=== PATIENT | female | born 1970 | race Two or more races ===

== ENCOUNTER 2016-09-08 11:47 | Emergency (ER) | payer MEDICARE ==
[2016-09-08 12:03] VITALS: BP 126/84
--- NOTE | 2016-09-08 12:07 | ER Document Report ---
ED Medical Screen (RME) - General Stated Complaint: MEDICATION REFILL Mode of Arrival: Ambulatory Information source: Patient Notes: Patient states she recently relocated to [facility] and has not been on her usual medications. Patient does have HIV supposed to be on a cocktail of medications. Patient has been off of her medication for the past 2 months. Patient also reports a history of kidney stones and wants to know how much her stone has grown. hx: HIV, PTSD, borderline personality disorder, bipolar I have greeted and performed a rapid initial assessment of this patient. A comprehensive ED assessment and evaluation of the patient, analysis of test results and completion of the medical decision making process will be conducted by additional ED providers. - Related Data Allergies/Adverse Reactions: Sulfa (Sulfonamide Antibiotics) Allergy (Verified 09/08/16 12:05) Physical Exam - Vital signs Vitals: Temp Pulse Resp BP Pulse Ox 98.1 F 68 18 126/84 H 100 09/08/16 12:03 09/08/16 12:03 09/08/16 12:03 09/08/16 12:03 09/08/16 12:03 - General General appearance: Appears well, Alert In distress: None Course - Vital Signs Vital signs: Temp Pulse Resp BP Pulse Ox 98.1 F 68 18 126/84 H 100 09/08/16 12:03 09/08/16 12:03 09/08/16 12:03 09/08/16 12:03 09/08/16 12:03
[2016-09-08 13:42] LABS: ABSOLUTE BASOPHILS # (AUTO) 0.1 10^3/uL (0.0-0.2); ABSOLUTE EOSINOPHILS # (AUTO) 0.6 10^3/uL (0.0-0.6); ABSOLUTE LYMPHOCYTES (AUTO) 3.1 10^3/uL (0.5-4.7); ABSOLUTE MONOCYTES (AUTO) 0.8 10^3/uL (0.1-1.4); ABSOLUTE NEUT (AUTO) 5.7 10^3/uL (1.7-8.2); BASOPHILS % (AUTO) 0.5 % (0-2); EOSINOPHILS % (AUTO) 5.5 % (0-6); HEMATOCRIT 42.7 % (36.0-47.0); HEMOGLOBIN 13.8 g/dL (12.0-15.5); HGB HCT DIFFERENCE -1.3; LYMPHOCYTES % (AUTO) 30.2 % (13-45); MEAN CORPUSCULAR HEMOGLOBIN 30.4 pg (27.0-33.4); MEAN CORPUSCULAR HGB CONC 32.2 g/dL (32.0-36.0); MEAN CORPUSCULAR VOLUME 95 fl (80-97); MONOCYTES % (AUTO) 7.9 % (3-13); RED BLOOD COUNT 4.52 10^6/uL (3.72-5.28); RED CELL DISTRIBUTION WIDTH 13.5 % (11.5-14.0); SEGMENTED NEUTROPHILS % (AUTO) 55.9 % (42-78); WHITE BLOOD COUNT 10.2 10^3/uL (4.0-10.5)
[2016-09-08 13:46] LABS: APPEARANCE,URINE CLEAR; BILIRUBIN,URINE NEGATIVE (NEGATIVE); GLUCOSE, URINE NEGATIVE (NEGATIVE); KETONES,URINE NEGATIVE (NEGATIVE); LEUKOCYTE ESTERASE,URINE NEGATIVE (NEGATIVE); NITRITE,URINE NEGATIVE (NEGATIVE); PROTEIN,URINE NEGATIVE (NEGATIVE); URINE SPECIFIC GRAVITY 1.018; UROBILINOGEN,URINE NEGATIVE mg/dL (<2.0)
[2016-09-08 14:00] LABS: ALANINE AMINOTRANSFERASE 15 U/L (9-52); ALBUMIN 4.3 g/dL (3.5-5.0); ALKALINE PHOSPHATASE 45 U/L (38-126); ANION GAP 11 (5-19); ASPARTATE AMINO TRANSFERASE 14 U/L (14-36); BILIRUBIN,TOTAL 0.5 mg/dL (0.2-1.3); BLOOD UREA NITROGEN 13 mg/dL (7-20); CALCIUM 9.5 mg/dL (8.4-10.2); CARBON DIOXIDE 27 mmol/L (22-30); CHLORIDE 104 mmol/L (98-107); CREATININE RESULT 0.53 mg/dL (0.52-1.25); GLUCOSE 84 mg/dL (75-110); POTASSIUM 4.3 mmol/L (3.6-5.0); SODIUM 141.9 mmol/L (137-145); TOTAL PROTEIN 7.2 g/dL (6.3-8.2)
--- NOTE | 2016-09-08 14:59 | ER Document Report ---
ED General - General Chief Complaint: Medication Refill Stated Complaint: MEDICATION REFILL Time seen by provider: 14:56 Mode of Arrival: Ambulatory Notes: This is a 45-year-old female with a history of HIV asthma bipolar and anxiety that presents today with a medication refill. She states that she is from [place] and has no primary care physician here in [place]. She denies all symptoms. She denies nausea vomiting fever or chills. Her primary care physician is Dr. Sullivan, who is in [place]. She states that she had an appointment with [facility] today at 0900 but decided not to go. Patient has medications in bag. TRAVEL OUTSIDE OF THE [place] IN LAST 30 DAYS: No - Related Data Allergies/Adverse Reactions: Sulfa (Sulfonamide Antibiotics) Allergy (Verified 09/08/16 12:05) Past Medical History - General Information source: Patient - Social History Smoking Status: Current Every Day Smoker Chew tobacco use (# tins/day): No Frequency of alcohol use: Social Drug Abuse: None Family History: Reviewed & Not Pertinent Patient has suicidal ideation: No Patient has homicidal ideation: No Pulmonary Medical History: Reports: Hx Pneumonia Renal/ Medical History: Denies: Hx Peritoneal Dialysis Psychiatric Medical History: Reports: Hx Bipolar Disorder - borderline, Hx Depression - PTSD, manic dep Past Surgical History: Reports: Hx Kidney (Renal Surgery) - kidney stones Review of Systems - Review of Systems Constitutional: denies: Chills, Fever EENT: No symptoms reported Cardiovascular: No symptoms reported. denies: Chest pain Respiratory: No symptoms reported. denies: Cough, Hurts to breathe Gastrointestinal: No symptoms reported. denies: Abdominal pain Genitourinary: No symptoms reported. denies: Burning Musculoskeletal: No symptoms reported Skin: No symptoms reported Hematologic/Lymphatic: No symptoms reported Neurological/Psychological: No symptoms reported Physical Exam - Vital signs Vitals: Temp Pulse Resp BP Pulse Ox 98.1 F 68 18 126/84 H 100 09/08/16 12:03 09/08/16 12:03 09/08/16 12:03 09/08/16 12:03 09/08/16 12:03 - General General appearance: Appears well, Alert In distress: None - HEENT Head: Normocephalic, Atraumatic Eyes: Normal. No: Scleral icterus - Respiratory Respiratory status: No respiratory distress. No: Tachypnea Breath sounds: Normal. No: Rales, Rhonchi, Stridor, Wheezing - Cardiovascular Rhythm: Regular Heart sounds: Normal auscultation - Abdominal Inspection: Normal Distension: No distension Bowel sounds: Normal Tenderness: Nontender - Back Back: Normal - Extremities General upper extremity: Normal inspection General lower extremity: Normal inspection - Neurological Cognition: Normal. No: Confused - Psychological Associated symptoms: Normal affect, Normal mood - Skin Skin Temperature: Warm Skin Moisture: Dry Skin Color: Normal Course - Re-evaluation Re-evalutation: 09/08/16 16:56 Patient stated that she had an appointment with [facility] but did not keep it today. She was advised to follow-up as soon as possible and reschedule the appointment. Patient denies all symptoms. - Vital Signs Vital signs: Temp Pulse Resp BP Pulse Ox 98.1 F 68 18 126/84 H 100 09/08/16 12:03 09/08/16 12:03 09/08/16 12:03 09/08/16 12:03 09/08/16 12:03 - Laboratory Result Diagrams: 09/08/16 12:50 09/08/16 12:50 Laboratory results interpreted by me: 09/08/16 12:50 Urine Ascorbic Acid 40 H Discharge - Discharge Clinical Impression: Encounter for medication refill Condition: Good Disposition: HOME, SELF-CARE Additional Instructions: Return to the emergency department if any symptoms return. Follow-up with primary care physician as soon as possible. Prescriptions: Albuterol Sulfate [Proair HFA Inhalation Aerosol 8.5 gm MDI] 2 puff IH Q4H PRN # 1 mdi PRN Reason: Referrals: [facility] [Provider Group] - Follow up as needed
== END 2016-09-08 15:08 | disposition home or self-care (01) ==
LOC: ER 11:47
DX: Z76.0 Encounter for issue of repeat prescription (principal); F17.200 Nicotine dependence, unspecified, uncomplicated; Z88.2 Allergy status to sulfonamides
CPT/HCPCS: 36415; 80053; 81001; 81025; 85025; 99282

== ENCOUNTER 2017-12-20 11:03 | Emergency (ER) | payer MEDICARE, MEDICAID ==
--- NOTE | 2017-12-20 12:35 | ER Document Report ---
HPI - HPI Patient complains to provider of: Upper and lower back pain Onset: Other - Several days Onset/Duration: Gradual Quality of pain: Throbbing Pain Level: 4 Context: 47-year-old female complaining of upper and lower back pain after doing several days of extensive yard work, raking, and moving furniture. She did feel a pop in her lower back. There is no radiculopathy. No saddle anesthesia. No fever or chills. No UTI symptoms. Associated Symptoms: None Exacerbated by: Movement Relieved by: Denies Similar symptoms previously: No Recently seen / treated by doctor: No - ROS ROS below otherwise negative: Yes Systems Reviewed and Negative: Yes All other systems reviewed and negative - CONSTITUTIONAL Constitutional: DENIES: Fever, Chills - EENT EENT: DENIES: Sore Throat, Ear Pain, Eye problems - NEURO Neurology: DENIES: Headache, Weakness, Vision blurred, Dizzinesss / Vertigo - CARDIOVASCULAR Cardiovascular: DENIES: Chest pain - RESPIRATORY Respiratory: DENIES: Trouble Breathing, Coughing - GASTROINTESTINAL Gastrointestinal: DENIES: Abdominal Pain, Black / Bloody Stools - URINARY Urinary: DENIES: Dysuria, Urgency, Frequency - MUSCULOSKELETAL Musculoskeletal: DENIES: Extremity pain Past Medical History - General Information source: Patient - Social History Smoking Status: Current Every Day Smoker Chew tobacco use (# tins/day): No Frequency of alcohol use: Occasional Drug Abuse: None Lives with: Family Family History: Reviewed & Not Pertinent Patient has suicidal ideation: No Patient has homicidal ideation: No Pulmonary Medical History: Reports: Hx Pneumonia Renal/ Medical History: Denies: Hx Peritoneal Dialysis Psychiatric Medical History: Reports: Hx Bipolar Disorder - borderline, Hx Depression - PTSD, manic dep Past Surgical History: Reports: Hx Kidney (Renal Surgery) - kidney stones Vertical Provider Document - CONSTITUTIONAL Agree With Documented VS: Yes Exam Limitations: No Limitations General Appearance: Mild Distress - INFECTION CONTROL TRAVEL OUTSIDE OF THE [place] IN LAST 30 DAYS: No - HEENT HEENT: Normocephalic - NECK Neck: Supple Notes: non tender c spine, bilateral trapezius muscles tender - RESPIRATORY Respiratory: Breath Sounds Normal, No Respiratory Distress - CARDIOVASCULAR Cardiovascular: Regular Rate, Regular Rhythm - BACK Back: Normal Inspection Notes: tender upper l spine midline - MUSCULOSKELETAL/EXTREMETIES Musculoskeletal/Extremeties: SUNI PABLO - NEURO Motor/Sensory: No Motor Deficit, No Sensory Deficit - DERM Integumentary: Warm, Dry, No Rash Course - Re-evaluation Re-evalutation: 12/20/17 13:52 Patient states that Tylenol will not help the pain and Motrin causes inflammation in her esophagus but she is willing to take a Toradol shot IM. 12/20/17 14:00 X-ray shows minimal levoscoliosis no acute findings. - Vital Signs Vital signs: Temp Pulse Resp BP Pulse Ox 98.6 F 67 16 143/83 H 100 12/20/17 11:36 12/20/17 11:36 12/20/17 11:36 12/20/17 11:36 12/20/17 11:36 Discharge - Discharge Clinical Impression: low and upper back muscle strain Condition: Good Disposition: HOME, SELF-CARE Instructions: Low Back Pain ([facility]), Muscle Relaxers ([facility]), Muscle Strain ([facility]), Upper Back Strain ([facility]), Warm Packs ([facility]) Additional Instructions: warm compress to your doctor for follow up to er if worsening symptoms see chiropractor for follow up Prescriptions: Cyclobenzaprine HCl [Flexeril 10 Mg Tablet] 10 mg PO TIDP PRN #20 tablet PRN Reason: Heating Pad 1 appful TOP DAILY #1 Forms: Return to Work
[2017-12-20] MEDS ORDERED: ACETAMINOPHEN 325 MG TABLET PO ONE (12:47)
[2017-12-20] MEDS ORDERED: IBUPROFEN 800 MG TABLET PO ONE (12:47)
--- NOTE | 2017-12-20 13:17 | RADIOLOGY REPORT (SQ) ---
EXAM DESCRIPTION: L SPINE WHOLE COMPLETED DATE/TIME: 12/20/2017 1:06 pm REASON FOR STUDY: back injury pain COMPARISON: None. NUMBER OF VIEWS: Five views including obliques. TECHNIQUE: AP, lateral, oblique, and sacral radiographic images acquired of the lumbar spine. LIMITATIONS: None. FINDINGS: MINERALIZATION: Normal. SEGMENTATION: Normal. No transitional anatomy. ALIGNMENT: Minimal levoscoliosis. VERTEBRAE: Maintained height. No fracture or worrisome bone lesion. DISCS: Preserved height. No significant osteophytes or end plate irregularity. POSTERIOR ELEMENTS: Pedicles and facets are intact. No pars defect or posterior arch defects. HARDWARE: None in the spine. PARASPINAL SOFT TISSUES: Normal. PELVIS: Intact as visualized. No fractures or worrisome bone lesions. SI joints intact. OTHER: No other significant finding. IMPRESSION: Minimal levoscoliosis. No acute findings are present. TECHNICAL DOCUMENTATION: JOB ID: [id number] [employer]- All Rights Reserved Reading location - IP/workstation name: [email or web address]
[2017-12-20] MEDS ORDERED: KETOROLAC TROMETHAMINE 60 MG/2 ML SDV IM ONE (13:52)
[2017-12-20] MEDS ORDERED: PHENAZOPYRIDINE HCL 200 MG TABLET PO ONE (13:55)
[2017-12-20 14:30] VITALS: BP 138/83
== END 2017-12-20 14:29 | disposition home or self-care (01) ==
LOC: ER 11:03
DX: S39.012A Strain of muscle, fascia and tendon of lower back, initial encounter (principal); S29.012A Strain of muscle and tendon of back wall of thorax, initial encounter; F17.200 Nicotine dependence, unspecified, uncomplicated; X58.XXXA Exposure to other specified factors, initial encounter; Y93.H2 Activity, gardening and landscaping; Y92.007 Garden or yard of unspecified non-institutional (private) residence as the place of occurrence of the external cause; Z87.442 Personal history of urinary calculi
CPT/HCPCS: 99283; 96372; 72110; J1885

== ENCOUNTER 2018-08-22 11:40 | Emergency (ER) | payer MEDICARE, MEDICAID ==
[2018-08-22] MEDS ORDERED: OXYCODONE HCL IR 5 MG TABLET PO ONE (11:46)
[2018-08-22 11:50] VITALS: BP 178/116
--- NOTE | 2018-08-22 12:28 | RADIOLOGY REPORT (SQ) ---
EXAM DESCRIPTION: WRIST LEFT 3 VIEWS COMPLETED DATE/TIME: 08/22/2018 12:14 pm REASON FOR STUDY: left wrist COMPARISON: None. NUMBER OF VIEWS: Three views. TECHNIQUE: AP, lateral, and oblique radiographic images acquired of the left wrist. LIMITATIONS: None. FINDINGS: MINERALIZATION: Normal. BONES: No acute fracture or dislocation. No worrisome bone lesions. Normal alignment. SOFT TISSUES: There is soft tissue swelling over the ulnar styloid. OTHER: No other significant finding. IMPRESSION: Mild soft tissue swelling. No fracture or dislocation. TECHNICAL DOCUMENTATION: JOB ID: [id number] [employer]- All Rights Reserved Reading location - IP/workstation name: [email or web address]
--- NOTE | 2018-08-22 12:37 | ER Document Report ---
ED Medical Screen (RME) - General Chief Complaint: Fall Stated Complaint: FALL Time Seen by Provider: 08/22/18 12:25 Notes: Patient is well-nourished well-developed 39-year-old female comes emergency room after having a trip and fall onto concrete. Patient has multiple abrasions with a hematoma to the head she had no loss of consciousness. She states that she had piles of closed on her floor to wash and she let her dog out and when she lo oked up there was a strange dog in the yard that there are ground on each other so patient got anxious should not ran out of the house to save her dog and she got to the step just before going outside and she tripped and fell out onto the concrete. Her whole left side has worn a huge abrasion she hit her head on something but denies any loss of consciousness. She has a deformity of the left wrist and her ring finger also appears to have a laceration on it. She has abrasions to her left hip from mid abdomen down that hurts as well as multiple abrasions on the knee and leg and other questionable area where there might be a laceration. Patient denies any other medical problems. TRAVEL OUTSIDE OF THE [place] IN LAST 30 DAYS: No - HPI Onset: Just prior to arrival Onset/Duration: Sudden Quality of pain: Sharp, Stabbing, Throbbing Pain Level: 4 Similar symptoms previously: No Recently seen / treated by doctor: No - Related Data Smoking: Cigarettes - Unknown Allergies/Adverse Reactions: ibuprofen [From Motrin] Allergy (Verified 08/22/18 11:41) Sulfa (Sulfonamide Antibiotics) Allergy (Verified 08/22/18 11:41) acetaminophen [From Tylenol] Adverse Reaction (Verified 08/22/18 11:41) Past Medical History - General Information source: Patient - Social History Lives with: Family Family history: Reviewed & Not Pertinent Pulmonary Medical History: Reports: Hx Pneumonia Renal/ Medical History: Denies: Hx Peritoneal Dialysis Psychiatric Medical History: Reports: Hx Bipolar Disorder - borderline, Hx Depression - PTSD, manic dep Past Surgical History: Reports: Hx Kidney (Renal Surgery) - kidney stones Review of Systems - Review of Systems Constitutional: No symptoms reported EENT: No symptoms reported Cardiovascular: No symptoms reported Respiratory: No symptoms reported Gastrointestinal: No symptoms reported Genitourinary: No symptoms reported Female Genitourinary: No symptoms reported Musculoskeletal: Joint pain, Joint swelling, Leg swelling Skin: No symptoms reported Hematologic/Lymphatic: No symptoms reported Neurological/Psychological: No symptoms reported Physical Exam - Vital signs Vitals: Temp Pulse Resp BP Pulse Ox 98.7 F 83 20 178/116 H 98 08/22/18 11:49 08/22/18 11:49 08/22/18 11:49 08/22/18 11:49 08/22/18 11:49 Interpretation: Hypertensive - Notes Notes: Physical exam Patient is well-nourished well-developed 47-year-old female who is in no apparent distress at present time of examination however she appears to be in moderate amount of discomfort and pain secondary to the left side of her body B in 1 large abrasion with a deformity of the left wrist. Lungs: Auscultation of the lungs show bilateral breath sounds clear to auscultation. Cardiac: Shows regular rate and rhythm without any murmurs. Musculoskeletal: Examination of area of concern is her left shoulder which shows a 6 x 4 abrasion the bleeding is controlled. She has a deformity of the left wrist about the distal third of the radius and ulna area. Very tender to palpation patient will not let us touch it. She will not make a fist or try to extend her fingers on physical examination. Left ring finger appears to have a laceration on the medial aspect of it but the blood is clotted currently. She will not been that ring finger and will not allowed to be touch. Lower extremities shows that she has multiple abrasions on the leg possible laceration on the sorenson area of the lower leg. Skin: As mentioned in all the above patient has 1 huge abrasion from the left shoulder and arm all the way down to the left hip going posteriorly and anteriorly to the abdomen that appears to be rock E or dirty. Course - Re-evaluation Re-evalutation: 08/22/18 12:37 Patient is going to take some extensive cleaning up to do in order to see what exactly needs to be done. There is a deformity at the wrist the x-ray has not been read yet. She needs to be moved up. So at this time I do not believe there are any further orders that need to be handled so I am passing her off after doing my initial evaluation of the patient finding her stable at this time to be moved up to a room where it is a additional provider will take over her care. - Vital Signs Vital signs: Temp Pulse Resp BP Pulse Ox 98.7 F 83 20 178/116 H 98 08/22/18 11:49 08/22/18 11:49 08/22/18 11:49 08/22/18 11:49 08/22/18 11:49 Doctor's Discharge - Discharge Clinical Impression: Fall (on) (from) other stairs and steps, initial encounter, Abrasions of mul tiple sites
[2018-08-22] MEDS ORDERED: LIDOCAINE 5% (700 MG) TRANSDERMAL ADH..PATCH TP ONE (13:35)
--- NOTE | 2018-08-22 14:00 | ER Document Report ---
ED General - General Chief Complaint: Fall Stated Complaint: FALL Time Seen by Provider: 08/22/18 12:25 TRAVEL OUTSIDE OF THE [place] IN LAST 30 DAYS: No - HPI Patient complains to provider of: Fall Notes: Patient coming in for evaluation of her fall. Patient was seen by 1 of our triage providers his note is below atient is well-nourished well-developed 39-year-old female comes emergency room after having a trip and fall onto concrete. Patient has multiple abrasions with a hematoma to the head she had no loss of consciousness. She states that she had piles of closed on her floor to wash and she let her dog out and when she looked up there was a strange dog in the yard that there are ground on each other so patient got anxious should not ran out of the house to save her dog and she got to the step just before going outside and she tripped and fell out onto the concrete. Her whole left side has worn a huge abrasion she hit her head on something but denies any loss of consciousness. She has a deformity of the left wrist and her ring finger also appears to have a laceration on it. She has abrasions to her left hip from mid abdomen down that hurts as well as multiple abrasions on the knee and leg and other questionable area where there might be a laceration. Patient denies any other medical problems. Patient upon my evaluation and attempts to be complaining of pain in the left wrist. Patient has multiple obvious abrasions patient otherwise denies any fever chills nausea by diarrhea states tetanus is up-to-date. - Related Data Allergies/Adverse Reactions: ibuprofen [From Motrin] Allergy (Verified 08/22/18 11:41) Sulfa (Sulfonamide Antibiotics) Allergy (Verified 08/22/18 11:41) acetaminophen [From Tylenol] Adverse Reaction (Verified 08/22/18 11:41) Past Medical History - General Information source: Patient - Social History Smoking Status: Former Smoker Frequency of alcohol use: Occasional Drug Abuse: None Lives with: Family Family History: Reviewed & Not Pertinent Patient has suicidal ideation: No Patient has homicidal ideation: No Pulmonary Medical History: Reports: Hx Pneumonia Renal/ Medical History: Denies: Hx Peritoneal Dialysis Psychiatric Medical History: Reports: Hx Bipolar Disorder - borderline, Hx Depression - PTSD, manic dep Past Surgical History: Reports: Hx Kidney (Renal Surgery) - kidney stones Review of Systems - Review of Systems Constitutional: No symptoms reported EENT: No symptoms reported Cardiovascular: No symptoms reported Respiratory: No symptoms reported Gastrointestinal: No symptoms reported Genitourinary: No symptoms reported Female Genitourinary: No symptoms reported Musculoskeletal: Other - Multiple abrasions with pain of the left elbow and shoulder Skin: No symptoms reported Hematologic/Lymphatic: No symptoms reported Neurological/Psychological: No symptoms reported -: Yes All other systems reviewed and negative Physical Exam - Vital signs Vitals: Temp Pulse Resp BP Pulse Ox 98.7 F 83 20 178/116 H 98 08/22/18 11:49 08/22/18 11:49 08/22/18 11:49 08/22/18 11:49 08/22/18 11:49 Interpretation: Normal - General General appearance: Appears well, Alert - HEENT Head: Normocephalic, Atraumatic Eyes: Normal Pupils: PERRL - Respiratory Respiratory status: No respiratory distress Chest status: Nontender Breath sounds: Normal Chest palpation: Normal - Cardiovascular Rhythm: Regular Heart sounds: Normal auscultation Murmur: No - Abdominal Inspection: Normal Distension: No distension Bowel sounds: Normal Tenderness: Nontender Organomegaly: No organomegaly - Back Back: Normal, Nontender - Extremities General upper extremity: Tender - Tenderness palpation of wrist elbow and shoulder, Normal color, Normal ROM, Normal temperature. No: Normal inspection - Multiple abrasions with swelling to the left wrist General lower extremity: Normal inspection, Nontender, Normal color, Normal ROM, Normal temperature, Normal weight bearing. No: Jeffrey's sign - Neurological Neuro grossly intact: Yes Cognition: Normal Orientation: AAOx4 Valentine Coma Scale Eye Opening: Spontaneous Valentine Coma Scale Verbal: Oriented Cira Coma Scale Motor: Obeys Commands Cira Coma Scale Total: 15 Speech: Normal Motor strength normal: LUE, RUE, LLE, RLE Sensory: Normal - Psychological Associated symptoms: Normal affect, Normal mood - Skin Skin Temperature: Warm Skin Moisture: Dry Skin Color: Normal Notes: Multiple abrasions on the extremities Course - Re-evaluation Re-evalutation: 08/22/18 16:13 Upon my evaluation patient already had the left wrist x-ray performed showing no fracture. Patient requesting pain medication explained to patient that we would give her something unknowing that the patient receive oxycodone in the triage area. Patient was given additional Narcan. Patient continued to have pain to palpation of the wrist elbow and shoulder therefore x-rays of the elbow and shoulder were added I was later notified by the nursing staff the patient eloped the ER prior to receiving the official reads of the elbow and shoulder x-rays - Vital Signs Vital signs: Temp Pulse Resp BP Pulse Ox 98.7 F 83 20 178/116 H 98 08/22/18 11:49 08/22/18 11:49 08/22/18 11:49 08/22/18 11:49 08/22/18 11:49 Discharge - Discharge Clinical Impression: Fall (on) (from) other stairs and steps, initial encounter, Abrasions of multiple sites Disposition: AGAINST MEDICAL ADVICE Instructions: Abrasions ([facility]), Contusion ([facility]) Additional Instructions: Please follow-up with your primary care physician. I would recommend keeping triple antibiotic ointment on all of your abrasions and please make sure they stay clean and dry return to the ER for any other concerns.
--- NOTE | 2018-08-22 14:48 | RADIOLOGY REPORT (SQ) ---
EXAM DESCRIPTION: ELBOW LEFT AP/LATERAL COMPLETED DATE/TIME: 08/22/2018 2:31 pm REASON FOR STUDY: fall COMPARISON: None. NUMBER OF VIEWS: Four views. TECHNIQUE: AP, lateral, and both oblique radiographic images acquired of the left elbow. LIMITATIONS: None. FINDINGS: MINERALIZATION: Normal. BONES: No acute fracture or dislocation. Small osteophytes off of the distal anterior humerus. JOINT: No effusion. SOFT TISSUES: No soft tissue swelling. No foreign body. OTHER: No other significant finding. IMPRESSION: 1. NEGATIVE STUDY OF THE LEFT ELBOW. TECHNICAL DOCUMENTATION: JOB ID: [id number] [employer]- All Rights Reserved Reading location - IP/workstation name: [email or web address]
--- NOTE | 2018-08-22 14:49 | RADIOLOGY REPORT (SQ) ---
EXAM DESCRIPTION: SHOULDER LEFT 2 OR MORE VIEWS COMPLETED DATE/TIME: 08/22/2018 2:31 pm REASON FOR STUDY: fall COMPARISON: None. NUMBER OF VIEWS: Three views. TECHNIQUE: Internal rotation, external rotation, and Y view images acquired of the left shoulder. LIMITATIONS: None. FINDINGS: MINERALIZATION: Normal. BONES: No acute fracture or dislocation. No worrisome bone lesions. JOINTS: No dislocation. VISUALIZED LUNGS AND RIBS: No pneumothorax. No rib fracture. SOFT TISSUES: No radiopaque foreign body. OTHER: No other significant finding. IMPRESSION: 1. NEGATIVE STUDY OF THE LEFT SHOULDER. TECHNICAL DOCUMENTATION: JOB ID: [id number] [employer]- All Rights Reserved Reading location - IP/workstation name: [email or web address]
== END 2018-08-22 14:38 | disposition left against medical advice (07) ==
LOC: ER 11:40
DX: S50.312A Abrasion of left elbow, initial encounter (principal); S40.212A Abrasion of left shoulder, initial encounter; M25.432 Effusion, left wrist; M25.532 Pain in left wrist; W10.8XXA Fall (on) (from) other stairs and steps, initial encounter; Y93.K9 Activity, other involving animal care; Y92.009 Unspecified place in unspecified non-institutional (private) residence as the place of occurrence of the external cause; Z53.20 Procedure and treatment not carried out because of patient's decision for unspecified reasons; Z88.6 Allergy status to analgesic agent; Z88.2 Allergy status to sulfonamides; Z87.891 Personal history of nicotine dependence; M25.522 Pain in left elbow
CPT/HCPCS: 99281; 73070; 73030; 73110; A9270

== ENCOUNTER 2018-08-23 10:02 | Emergency (ER) | payer MEDICARE, MEDICAID ==
[2018-08-23 10:14] VITALS: BP 140/97
--- NOTE | 2018-08-23 10:26 | ER Document Report ---
ED Medical Screen (RME) - General Chief Complaint: Abrasion(s) Stated Complaint: FALL/LEFT SIDE PAIN Time Seen by Provider: 08/23/18 10:25 Notes: Patient fell yesterday sustaining significant abrasions to the left upper extremity and the left lower leg. She was seen here last night and had x-rays done of the left shoulder, elbow, and wrist were all normal.. She had to leave because she has an autistic child at home. She returns today because of the continuing pain. Today, patient is complaining of pain in her left knee. HIV positive. History of anxiety, bipolar disorder, PTSD. TRAVEL OUTSIDE OF THE [place] IN LAST 30 DAYS: No - Related Data Allergies/Adverse Reactions: ibuprofen [From Motrin] Allergy (Verified 08/22/18 11:41) Sulfa (Sulfonamide Antibiotics) Allergy (Verified 08/22/18 11:41) acetaminophen [From Tylenol] Adverse Reaction (Verified 08/22/18 11:41) Past Medical History - Social History Chew tobacco use (# tins/day): No Frequency of alcohol use: None Drug Abuse: None Family history: Reviewed & Not Pertinent Pulmonary Medical History: Reports: Hx Pneumonia Psychiatric Medical History: Reports: Hx Bipolar Disorder - borderline, Hx Depression - PTSD, manic dep Infectious Medical History: Reports: Hx HIV Past Surgical History: Reports: Hx Kidney (Renal Surgery) - kidney stones Review of Systems - Review of Systems Notes: CONSTITUTIONAL : Denies fever. CARDIOVASCULAR: Denies chest pain. RESPIRATORY: Denies cough, chest congestion, or shortness of breath. GASTROINTESTINAL: Denies abdominal pain or nausea, vomiting, or diarrhea. GENITOURINARY: Denies difficulty or painful urinating, urinary frequency, blood in urine. Physical Exam - Vital signs Vitals: Temp Pulse Resp BP Pulse Ox 98.8 F 85 18 140/97 H 97 08/23/18 10:12 08/23/18 10:12 08/23/18 10:12 08/23/18 10:12 08/23/18 10:12 Interpretation: Normal Notes: PHYSICAL EXAMINATION: GENERAL: Well-appearing, no acute distress. Holding left arm still because of the abrasions and bruises she sustained to the forearm. HEAD: Atraumatic, normocephalic. NECK: Normal range of motion, supple. LUNGS: Breath sounds clear and equal bilaterally. HEART: Regular rate and rhythm without murmurs heard. ABDOMEN: Soft, nontender. No guarding or rebound or masses felt. Extremities: Patient has numerous abrasions of her left arm, shoulder, elbow, and then the left leg from the knee down to the ankle. These abrasions are deep and oozing clear liquid. They are very painful to touch. No apparent bony injury. Neurologic exam: Intact sensory motor and reflexes. Oriented x3. Course - Re-evaluation Re-evalutation: 08/23/18 11:27 Patient's chart says she is allergic to Tylenol in Percocet, but I asked her specifically about the Tylenol she says she is not allergic to it. 08/23/18 20:12 Patient's previous visit record was reviewed. X-rays were obtained of her left knee which were normal. - Vital Signs Vital signs: Temp Pulse Resp BP Pulse Ox 98.8 F 85 18 140/97 H 97 08/23/18 10:12 08/23/18 10:12 08/23/18 10:12 08/23/18 10:12 08/23/18 10:12 Doctor's Discharge - Discharge Clinical Impression: Fall, Multiple abrasions Condition: Stable Disposition: HOME, SELF-CARE Additional Instructions: MUSCLE STRAIN: You have strained a muscle -- torn the fibers within the muscle. This often occurs with strenuous exertion, or during an injury that suddenly stretches the muscle. The seriousness of a strain varies. Some strains heal within days, others cause problems for months. X-rays cannot show a muscle strain. X-rays are taken only if symptoms suggest that a fracture could be present. The usual treatment of a muscle strain is rest and ice packs. Sometimes, a sling, splint, or crutches may be necessary to rest the muscle. The muscle can be used again once pain subsides. Severe strains require a special exercise and stretching program to prevent permanent stiffness and disability. Your doctor will advise you if this will be necessary. Call the doctor immediately if pain or swelling becomes severe, or if numbness or discoloration develop. CONTUSION: Your injury has resulted in a contusion -- a crushing of the deep tissues. No injury to important structures was detected during the physician's exam. Contusions vary in the amount of pain they cause, and in the length of time required for healing. Typically, the area will become bruised, and will remain painful to touch for two or three weeks. However, most patients are back to working and playing within a few days. After the initial period of rest and cold-packs, your symptoms (together with the doctor's recommendations) will determine how rapidly you can get back to full activity. Usually this means "do what feels okay, but don't do things that hurt." If re-examination was recommended, it's important to follow up as instructed. Call the doctor or return any time if pain increases, if swelling becomes severe, if you develop numbness or weakness in an injured extremity, or if any other alarming symptoms occur. ABRASIONS: An abrasion is a scraping injury of the skin. Some scarring may result. The seriousness of an abrasion is not always obvious at first. Hidden tissue damage may be present and infection may occur despite proper care. Complete healing may take from ten days to as long as a month. The healing time depends on the depth of the abrasion, and on the amount of crushing of underlying tissues from the injury. Keep the wound and dressing clean. Do not shower or bathe the area until okayed by the doctor. If the dressing gets wet, remove it and blot the wound dry, then reapply a clean dressing. Dressings should be changed every day. Sunscreen should be used for six months after the skin is healed. If any signs of infection occur (swelling, redness, increasing tenderness, red streaks, profuse purulent drainage from the abrasion, tender lumps in the armpit or groin above the abrasion, or fever), see the doctor immediately. USE OF TYLENOL (ACETAMINOPHEN): Acetaminophen may be taken for pain relief or fever control. It's much safer than aspirin, offering a wider range of "safe" dosages. It is safe during . Some brand names are Tylenol, Panadol, Datril, Anacin 3, Tempra, and Liquiprin. Acetaminophen can be repeated every four hours. The following are maximum recommended dosages: WEIGHT Dose Drops Elixir Chewable(80mg) (LBS.) drprs=droppers tsp=teaspoon >89 pounds or adults 650 mg to 900 mg Acetaminophen can be repeated every four hours. Maximum dose not to exceed 4000 mg a day. These maximum recommended dosages are slightly higher than the dosages written on the product container, but these dosages are very safe and below the toxic dosage for acetaminophen. ORAL NARCOTIC MEDICATION: You have been given a prescription for pain control. This medication is a narcotic. It's best taken with food, as nausea can result if taken on an empty stomach. Don't operate machinery or drive within six hours of taking this medication. Do not combine this medicine with alcohol, or with any medication which can cause sedation (such as cold tablets or sleeping pills) unless you get permission from the physician. Narcotics tend to cause constipation. If possible, drink plenty of fluids and eat a diet high in fiber and fruits. FOLLOW-UP CARE: If you have been referred to a physician for follow-up care, call the physicians office for an appointment as you were instructed or within the next two days. If you experience worsening or a significant change in your symptoms, notify the physician immediately or return to the Emergency Department at any time for re-evaluation. Change the dressings on your abrasions every day. It would be a good idea if you were to take a shower after removing all the old bandages before replacing them. Prescriptions: Oxycodone HCl/Acetaminophen [Percocet 5-325 mg Tablet] 1 tab PO Q4H PRN #20 tablet PRN Reason: Referrals: ABAD ROMEO MD [Primary Care Provider] - Follow up as needed
--- NOTE | 2018-08-23 12:01 | RADIOLOGY REPORT (SQ) ---
EXAM DESCRIPTION: KNEE LEFT 3 VIEWS COMPLETED DATE/TIME: 08/23/2018 11:18 am REASON FOR STUDY: fall, abrasions left lower leg COMPARISON: None. NUMBER OF VIEWS: Three views. TECHNIQUE: AP, lateral, and sunrise patella radiographic images acquired of the left knee. LIMITATIONS: None. FINDINGS: MINERALIZATION: Normal. BONES: No acute fracture or dislocation. No worrisome bone lesions. JOINT: No effusion. SOFT TISSUES: No soft tissue swelling. No radio-opaque foreign body. OTHER: No other significant finding. IMPRESSION: NEGATIVE STUDY OF THE LEFT KNEE. NO RADIOGRAPHIC EVIDENCE OF ACUTE INJURY. TECHNICAL DOCUMENTATION: JOB ID: [id number] [employer]- All Rights Reserved Reading location - IP/workstation name: [email or web address]
== END 2018-08-23 12:07 | disposition home or self-care (01) ==
LOC: ER 10:02
DX: S50.12XA Contusion of left forearm, initial encounter (principal); S40.212A Abrasion of left shoulder, initial encounter; S50.312A Abrasion of left elbow, initial encounter; S80.212A Abrasion, left knee, initial encounter; S80.812A Abrasion, left lower leg, initial encounter; M25.562 Pain in left knee; W19.XXXA Unspecified fall, initial encounter; Z88.6 Allergy status to analgesic agent; Z88.2 Allergy status to sulfonamides; Z21 Asymptomatic human immunodeficiency virus [HIV] infection status
CPT/HCPCS: 99283

== ENCOUNTER 2019-04-09 18:59 | Emergency (ER) | payer MEDICARE, MEDICAID ==
--- NOTE | 2019-04-09 20:02 | ER Document Report ---
ED Medical Screen (RME) - General Chief Complaint: Abscess Stated Complaint: POSSIBLE ABSCESS Time Seen by Provider: 04/09/19 19:39 Primary Care Provider: ABAD ROMEO MD [Primary Care Provider] - Follow up as needed Notes: Patient is a 48-year-old female with a history of borderline personality disorder, manic anxiety, bipolar, HIV who presents to the emergency department with multiple complaints. Patient reports she chipped the right bottom molar tooth last week and has had intermittent swelling to the face and right dental pain. Patient states she has been taking medications that people give her ran domly throughout her neighborhood for pain. Patient also complains of an infected bite to the left clavicle area, possible abscess to the right groin. Patient reports she has chronic cellulitis and was on long-term doxycycline 3 years ago when she lived in [place]. Patient also complains of bilateral knee pain, right foot pain and multiple chronic pain issues. Patient reports that she is frustrated as she does not feel like she is getting the help that she needs and nobody will prescribe her medication for her pain that she deals with. Patient reports she had 102 fever at home yesterday. TRAVEL OUTSIDE OF THE [place] IN LAST 30 DAYS: No - Related Data Allergies/Adverse Reactions: ibuprofen [From Motrin] Allergy (Verified 04/09/19 19:00) Sulfa (Sulfonamide Antibiotics) Allergy (Verified 04/09/19 19:00) acetaminophen [From Tylenol] Adverse Reaction (Verified 04/09/19 19:00) Past Medical History - Social History Chew tobacco use (# tins/day): No Frequency of alcohol use: None Drug Abuse: None Family history: Reviewed & Not Pertinent Pulmonary Medical History: Reports: Hx Pneumonia Renal/ Medical History: Denies: Hx Peritoneal Dialysis Psychiatric Medical History: Reports: Hx Bipolar Disorder, Hx Depression - PTSD, manic depression Infectious Medical History: Reports: Hx HIV Past Surgical History: Reports: Hx Kidney (Renal Surgery) - kidney stones Physical Exam - Vital signs Vitals: Temp Pulse Resp BP Pulse Ox 98.3 F 84 14 113/73 98 04/09/19 19:04 04/09/19 19:04 04/09/19 19:04 04/09/19 19:04 04/09/19 19:04 Course - Re-evaluation Re-evalutation: 04/09/19 20:00 Patient will need evaluation of the possible right groin abscess that she is stating. Patient will get basic labs as she does have a history of HIV and reports fever. In triage patient asking repetitively for something for her chronic pain and something to go home with for pain she has been dealing with t he run around with doctors for 3 years. Patient reports she is frustrated that she is not getting the same care that she did when she lived in [place]. I did inform the patient that we will obtain basic labs. I have greeted and performed a rapid initial assessment of this patient. A comprehensive ED assessment and evaluation of the patient, analysis of test results and completion of the medical decision making process will be conducted by additional ED providers. - Vital Signs Vital signs: Temp Pulse Resp BP Pulse Ox 98.3 F 84 14 113/73 98 04/09/19 19:04 04/09/19 19:04 04/09/19 19:04 04/09/19 19:04 04/09/19 19:04 Doctor's Discharge - Discharge Referrals: ABAD ROMEO MD [Primary Care Provider] - Follow up as needed
[2019-04-09 20:24] LABS: ABSOLUTE EOSINOPHILS # (AUTO) 0.2 10^3/uL (0.0-0.6); ABSOLUTE LYMPHOCYTES (AUTO) 2.4 10^3/uL (0.5-4.7); ABSOLUTE MONOCYTES (AUTO) 0.5 10^3/uL (0.1-1.4); ABSOLUTE NEUT (AUTO) 5.8 10^3/uL (1.7-8.2); BASOPHILS % (AUTO) 0.3 % (0-2); EOSINOPHILS % (AUTO) 1.7 % (0-6); HEMATOCRIT 43.9 % (36.0-47.0); HEMOGLOBIN 14.9 g/dL (12.0-15.5); LYMPHOCYTES % (AUTO) 27.3 % (13-45); MEAN CORPUSCULAR HEMOGLOBIN 30.4 pg (27.0-33.4); MEAN CORPUSCULAR VOLUME 89 fl (80-97); MONOCYTES % (AUTO) 5.6 % (3-13); PLATELET COUNT 277 10^3/uL (150-450); RED BLOOD COUNT 4.91 10^6/uL (3.72-5.28); RED CELL DISTRIBUTION WIDTH 13.8 % (11.5-14.0); SEGMENTED NEUTROPHILS % (AUTO) 65.1 % (42-78); TOTAL CELLS COUNTED % (AUTO) 100 %; WHITE BLOOD COUNT 8.9 10^3/uL (4.0-10.5)
[2019-04-09 20:33] LABS: APPEARANCE,URINE SLIGHTLY-CLOUDY; BILIRUBIN,URINE NEGATIVE (NEGATIVE); COLOR,URINE YELLOW; GLUCOSE, URINE NEGATIVE (NEGATIVE); KETONES,URINE NEGATIVE (NEGATIVE); LEUKOCYTE ESTERASE,URINE NEGATIVE (NEGATIVE); NITRITE,URINE NEGATIVE (NEGATIVE); PROTEIN,URINE NEGATIVE (NEGATIVE); UROBILINOGEN,URINE NEGATIVE mg/dL (<2.0)
[2019-04-09 20:34] LABS: ALBUMIN 4.6 g/dL (3.5-5.0); ALKALINE PHOSPHATASE 60 U/L (38-126); ANION GAP 8 (5-19); ASPARTATE AMINO TRANSFERASE 18 U/L (14-36); BILIRUBIN,DIRECT 0.1 mg/dL (0.0-0.4); BILIRUBIN,TOTAL 0.6 mg/dL (0.2-1.3); BLOOD UREA NITROGEN 20 mg/dL (7-20); CALCIUM 10.2 mg/dL (8.4-10.2); CARBON DIOXIDE 31 mmol/L (22-30); CHLORIDE 100 mmol/L (98-107); GLUCOSE 132 mg/dL (75-110); POTASSIUM 3.5 mmol/L (3.6-5.0); TOTAL PROTEIN 7.9 g/dL (6.3-8.2)
--- NOTE | 2019-04-09 22:00 | ER Document Report ---
ED Skin Rash/Insect Bite/Abscs - General Chief Complaint: Abscess Stated Complaint: POSSIBLE ABSCESS Time Seen by Provider: 04/09/19 19:39 Primary Care Provider: ABAD ROMEO MD [Primary Care Provider] - Follow up as needed Mode of Arrival: Ambulatory Information source: Patient Notes: 48 yr old female pt with the listed pmh, to include hiv and chronic pain, not currently on any meds, due to noncompliance and moving down here and trying to establish a pcp from [place], here today requesting pain meds for her chronic pain and also requesting doxycycline for concern of a dental infection and infected insect bites to her left upper chest and right groin for the last week or more. no fevers. no drainage. hx of this before and they resolved with doxy alone per pt. she has f/u with Infectious Disease, PCP, psych, pain management, and ortho in the near future. she states this is her chronic pain all over, nothing different. she states her pcp won't write her pain meds and has referred her to pain management. she states she can't take otc meds. she states ibuprofen gives her hives. she states she can take oxycodone and tramadol and other pain meds however. she is able to walk. no numbness, tingling, weakness, saddle anesthesia, incontinence, or any other sx. no trouble breathing, swallowing, or handling secretions. no fall or trauma. no other complaints at this time. TRAVEL OUTSIDE OF THE [place] IN LAST 30 DAYS: No - HPI Severity: Moderate Pain Level: 2 - Related Data Allergies/Adverse Reactions: ibuprofen [From Motrin] Allergy (Verified 04/09/19 19:00) Sulfa (Sulfonamide Antibiotics) Allergy (Verified 04/09/19 19:00) acetaminophen [From Tylenol] Adverse Reaction (Verified 04/09/19 19:00) Past Medical History - General Information source: Patient - Social History Smoking Status: Never Smoker Chew tobacco use (# tins/day): No Frequency of alcohol use: None Drug Abuse: None Family History: Reviewed & Not Pertinent Patient has suicidal ideation: No Patient has homicidal ideation: No Pulmonary Medical History: Reports: Hx Pneumonia Renal/ Medical History: Denies: Hx Peritoneal Dialysis Psychiatric Medical History: Reports: Hx Bipolar Disorder, Hx Depression - PTSD, manic depression Infectious Medical History: Reports: Hx HIV Past Surgical History: Reports: Hx Kidney (Renal Surgery) - kidney stones Review of Systems - Review of Systems -: Yes All other systems reviewed and negative - to include 10 systems, unless mentioned in the hpi Physical Exam - Vital signs Vitals: Temp Pulse Resp BP Pulse Ox 98.3 F 84 14 113/73 98 04/09/19 19:04 04/09/19 19:04 04/09/19 19:04 04/09/19 19:04 04/09/19 19:04 Interpretation: Normal Notes: >>>> PHYSICAL_EXAM: GENERAL_APPEARANCE: slightly mal_nourished, alert, cooperative, no_acute_distress, no_obvious_discomfort. pleasant, somewhat anxious middle aged thin female who appears slightly older than stated age, speaking in full sentences, in no sign of pain or resp distress, no one is with her however her fiance is supposed to be on the way to drive her home. VITALS: reviewed, see vital signs table. HEAD: no_swelling\tenderness on the head. normocephalic. atraumatic. no flores signs. no raccoons eyes. EARS: canals_clear_bilat, TMs_clear. EYES: PERRL, EOMI, conjunctiva_clear. NOSE: no_nasal_discharge. MOUTH: (-)decreased moisture. toothg #32 is broken and extremely carious. no buccal or gingival inflammation. no sign of dental abscess or ludwigs. no drainage or bleeding. tongue protrudes midline. no drooling, tripoding, voice change or stridor. uvula midline THROAT: no_tonsilar_inflammation, no_airway_obstruction. no_lymphadenopathy NECK: supple, no_neck_tenderness, full rom. full strength. no meningeal signs. BACK: no_back_tenderness. CHEST_WALL: no_chest_tenderness. no overlying skin changes other than a few erythemous scattered areas that look like they may be insect bites with mild surrounding cellulitis. no drainable fluid collection. no induration, fluctuation, bleeding, streaking, or drainage. LUNGS: no_wheezing, ctab (-)accessory muscle use, good air exchange bilateral. HEART: normal_rate, normal_rhythm, ABDOMEN: normal_BS, soft, no_abd_tenderness, (-)guarding, (-)rebound, no distension or peritoneal signs. no cva ttp PELVIC: deferred, however in the right suprapubic hair region almost in the groin crease there is a small 1cm or less area of erythematous induration that is mildly ttp. no fluctuation, drainage, streaking, or bleeding. no hernias or other lymphadenopathy. EXTREMITIES: strength 5/5 in all_extremities, good pulses in all_extremities, no_swelling\tenderness in the extremities, no_edema. full rom. normal gait. good pulses. brisk cap refill. good hand press reader. neg jeremy sign NEURO: motor and sensation intact, cranial nerves 2-12 intact, cerebellar fxn intact SKIN: warm, dry, good_color, no_rash other than as noted. MENTAL_STATUS: speech_clear, oriented_X_3, normal_affect, responds_appropriately to questions. Course - Re-evaluation Re-evalutation: pt here for dental pain, chronic pain, and likely infected insect bites. nothing drainable on exam. will dc with doxy. she is afebrile. labs unremarkable. she already has appropriate f/u with all her specialists in the near future to restart all her meds. 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 will dc with doxy. advised sx care. advised to f/u with pcp/psych/pain management/ortho/ID/dentist in 1-2 days. return for any worsening symptoms. vss. well appearing. satting well on ra. neurononfocal. pt understands and agrees to plan. On reexam, pt improved with tx listed. remained stable. nontoxic. well appearing. pain controlled. tolerating po. requesting to go home. Documentation achieved through voice recording which may lead to some occasional accidental typographical errors. Extensive efforts have been made to proof read documentation to make sure these are the least as possible. Category Date Time Status CBC WITH DIFF [HEME] Stat Lab 04/09/19 20:14 Completed COMPREHENSIVE METABOLIC PANEL [CHEM] Stat Lab 04/09/19 20:14 Completed URINALYSIS [URIN] Stat Lab 04/09/19 20:14 Completed Ketorolac Tromethamine [Toradol Inj/Pf 30 mg/1 ml Sdv] Med 04/10/19 00:38 Discontinued 30 mg IM NOW ONE Tramadol HCl [Ultram 50 mg Tablet] Med 04/10/19 01:12 Discontinued 50 mg PO NOW ONE - Vital Signs Vital signs: Temp Pulse Resp BP Pulse Ox 98.4 F 75 20 118/70 99 04/10/19 01:22 04/10/19 01:22 04/10/19 01:22 04/10/19 01:22 04/10/19 01:22 Temp Pulse Pulse Resp BP BP Pulse Ox 04/10/19 01:22 98.4 F 75 20 118/70 99 04/09/19 19:04 98.3 F 84 14 113/73 98 - Laboratory Result Diagrams: 04/09/19 20:14 04/09/19 20:14 Laboratory results interpreted by me: 04/09/19 04/09/19 20:14 20:14 Potassium 3.5 L Carbon Dioxide 31 H Glucose 132 H Urine Blood MODERATE H Labs- Entire Visit 04/09/19 04/09/19 04/09/19 20:14 20:14 20:14 WBC 8.9 RBC 4.91 Hgb 14.9 Hct 43.9 MCV 89 MCH 30.4 MCHC 34.0 RDW 13.8 Plt Count 277 Seg Neutrophils % 65.1 Lymphocytes % 27.3 Monocytes % 5.6 Eosinophils % 1.7 Basophils % 0.3 Absolute Neutrophils 5.8 Absolute Lymphocytes 2.4 Absolute Monocytes 0.5 Absolute Eosinophils 0.2 Absolute Basophils 0.0 Sodium 138.6 Potassium 3.5 L Chloride 100 Carbon Dioxide 31 H Anion Gap 8 BUN 20 Creatinine 0.73 Est GFR ( Amer) > 60 Est GFR (Non-Af Amer) > 60 Glucose 132 H Calcium 10.2 Total Bilirubin 0.6 Direct Bilirubin 0.1 Neonat Total Bilirubin Not Reportable Neonat Direct Bilirubin Not Reportable Neonat Indirect Bili Not Reportable AST 18 ALT 14 Alkaline Phosphatase 60 Total Protein 7.9 Albumin 4.6 Urine Color YELLOW Urine Appearance SLIGHTLY-CLOUDY Urine pH 6.0 Ur Specific [place] 1.020 Urine Protein NEGATIVE Urine Glucose (UA) NEGATIVE Urine Ketones NEGATIVE Urine Blood MODERATE H Urine Nitrite NEGATIVE Urine Bilirubin NEGATIVE Urine Urobilinogen NEGATIVE Ur Leukocyte Esterase NEGATIVE Urine WBC (Auto) 4 Urine RBC (Auto) 95 U Hyaline Cast (Auto) 3 Urine Bacteria (Auto) TRACE Squamous Epi Cells Auto 6 Urine Mucus (Auto) MANY Urine Ascorbic Acid NEGATIVE Discharge - Discharge Clinical Impression: Pain, dental, History of HIV infection Cellulitis Qualifiers: Site of cellulitis: other site Qualified Code(s): L03.818 - Cellulitis of other sites Chronic pain Qualifiers: Chronic pain type: other chronic pain Qualified Code(s): G89.29 - Other chronic pain Condition: Good Disposition: HOME, SELF-CARE Instructions: MRSA Cellulitis ([facility]), [facility], Toothache ([facility]) Additional Instructions: Follow-up with PCP/specialists in 1 to 2 days. Return for any worsening symptoms. take the medication as prescribed. cool compresses to the area. keep your apt with your pain management doctor, oral surgeon, orthopedist, and pcp. Prescriptions: Doxycycline Hyclate 100 mg PO BID #14 capsule Referrals: ABAD ROMEO MD [Primary Care Provider] - Follow up as needed
[2019-04-10] MEDS ORDERED: KETOROLAC TROMETHAMINE INJ/PF 30 MG/1 ML SDV IM ONE (00:38)
[2019-04-10] MEDS ORDERED: TRAMADOL HCL 50 MG TABLET PO ONE (01:12)
[2019-04-10 01:23] VITALS: BP 118/70
== END 2019-04-10 01:15 | disposition home or self-care (01) ==
LOC: ER 18:59
DX: L03.818 Cellulitis of other sites (principal); K08.89 Other specified disorders of teeth and supporting structures; G89.29 Other chronic pain; Z21 Asymptomatic human immunodeficiency virus [HIV] infection status
CPT/HCPCS: 99282; 36415; 85025; 80053; 81001; A9270

== ENCOUNTER 2019-05-09 10:32 | Emergency (ER) | payer MEDICARE, MEDICAID ==
[2019-05-09] MEDS ORDERED: DIPH/PERTUSS(ACELL)/TETANUS VAC/PF 0.5 ML SYR (>=10YO) IM ONE (10:55)
--- NOTE | 2019-05-09 11:02 | ER Document Report ---
HPI - HPI Time Seen by Provider: 05/09/19 10:43 Pain Level: 2 Notes: Patient is a 48-year-old female with a history of hypertension who presents complaining of dog bite to her left hand that occurred last evening. Patient states that she cleaned out the wounds well at home. Patient is not sure of her last tetanus which is what prompted her to come here. She still move her fingers without difficulty, but does have some discomfort near the fifth finger. Patient states that it was a stray dog that bit her hand. The dog was not acting ill or abnormal that she is aware of. No other concerns or complaints. Denies any headache, fever, URI, sore throat, chest pain, palpitations, syncope, cough, shortness of breath, wheeze, dyspnea, abdominal pain, nausea/vomiting/diarrhea, urinary retention, dysuria, hematuria, loss of control of bowel or bladder, numbness/tingling, muscle paralysis, or rash. - ROS Systems Reviewed and Negative: Yes All other systems reviewed and negative - REPRODUCTIVE Reproductive: DENIES: : Past Medical History - Social History Smoking Status: Current Every Day Smoker Family History: Reviewed & Not Pertinent Pulmonary Medical History: Reports: Hx Pneumonia Renal/ Medical History: Denies: Hx Peritoneal Dialysis Psychiatric Medical History: Reports: Hx Bipolar Disorder, Hx Depression - PTSD, manic depression Infectious Medical History: Reports: Hx HIV Past Surgical History: Reports: Hx Kidney (Renal Surgery) - kidney stones Vertical Provider Document - CONSTITUTIONAL Agree With Documented VS: Yes Notes: PHYSICAL EXAMINATION: GENERAL: Well-appearing, well-nourished and in no acute distress. HEAD: Atraumatic, normocephalic. NECK: Normal range of motion, supple without lymphadenopathy. No midline tenderness. LUNGS: Breath sounds clear to auscultation bilaterally and equal. No wheezes rales or rhonchi. HEART: Regular rate and rhythm without murmurs, rubs, gallops. Musculoskeletal: Lt hand: + small puncture noted lateral hand w. 2 small abrasions dorsal hand. No erythema, warmth, ecchymosis, deformity, or swelling noted. N/V intact distal. FROM to passive/active. 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 No scaphoid tenderness. Tinel/phalen neg. No other bony tenderness. Extremities: No cyanosis, clubbing, or edema b/l. Peripheral pulses 2+. Capillary refill less than 3 seconds. NEUROLOGICAL: Normal speech, normal gait. Normal sensory, motor exams otherwise unremarkable PSYCH: Normal mood, normal affect. SKIN: see above. No rash - INFECTION CONTROL TRAVEL OUTSIDE OF THE [place] IN LAST 30 DAYS: No Course - Re-evaluation Re-evalutation: 05/09/19 Patient is an afebrile, well-hydrated, 48-year-old female who presents to the ED with dog bite left hand with only a couple small abrasions and one very small p uncture without active bleeding. Vitals are acceptable without any significant tachycardia, tachypnea, or hypoxia. PE is otherwise unremarkable for any neurovascular compromise, obvious tendon/ligament rupture, obvious fracture/dislocation, septic joint. X-ray was unremarkable for any acute pathology. Patient is nontoxic-appearing. Tetanus was updated today. Reviewed the risk and benefit and full of rabies vaccination and patient declined at this time. No other labs or imaging warranted at this time based on H&P. I will send her home with prescription for Augmentin. Conservative measures otherwise for symptoms. Recheck with your PCM in 3-5 days. Consider consult orthopedics. Return to the ED with any worsening/concerning symptoms otherwise as reviewed in discharge. Patient is in agreement. - Vital Signs Vital signs: Temp Pulse Resp BP Pulse Ox 98.8 F 73 16 136/76 H 100 05/09/19 10:38 05/09/19 10:38 05/09/19 10:38 05/09/19 10:38 05/09/19 10:38 Discharge - Discharge Clinical Impression: Dog bite Qualifiers: Encounter type: initial encounter Qualified Code(s): W54.0XXA - Bitten by dog, initial encounter Condition: Stable Disposition: HOME, SELF-CARE Instructions: Animal Bites ([facility]) Additional Instructions: Keep the skin clean Wash with soap and water Tylenol/ibuprofen if needed Triple antibiotic ointment daily Take medication as directed Monitor for any worsening symptoms Recheck with your PCM in 3-5 days Return to the ED with any worsening symptoms and/or development of fever, headache, chest pain, palpitations, syncope, shortness of breath, trouble breathing, abdominal pain, n/v/d, abscess, purulent discharge, red streaks, worsening swelling, or other worsening symptoms that are concerning to you. Prescriptions: Amox Tr/Potassium Clavulanate [Augmentin 875-125 Tablet] 1 tab PO BID 10 Days #20 tablet Forms: Elevated Blood Pressure, Smoking Cessation Education Referrals: ABAD ROMEO MD [Primary Care Provider] - Follow up as needed [facility] [Provider Group] - Follow up as needed
--- NOTE | 2019-05-09 11:53 | RADIOLOGY REPORT (SQ) ---
EXAM DESCRIPTION: HAND LEFT 3 VIEWS COMPLETED DATE/TIME: 05/09/2019 11:39 am REASON FOR STUDY: dog bite COMPARISON: None. EXAM PARAMETERS: NUMBER OF VIEWS: Three views. TECHNIQUE: AP, lateral and oblique radiographic images acquired of the left hand. LIMITATIONS: Patient cannot remove the ring from the 3rd digit FINDINGS: MINERALIZATION: Normal. BONES: No acute fracture or dislocation. No worrisome bone lesions. JOINTS: No effusions. SOFT TISSUES: No soft tissue swelling. No foreign body. OTHER: No other significant finding. IMPRESSION: NEGATIVE STUDY OF THE LEFT HAND. NO RADIOGRAPHIC EVIDENCE OF ACUTE INJURY. TECHNICAL DOCUMENTATION: JOB ID: [id number] [employer]- All Rights Reserved Reading location - IP/workstation name: [email or web address]
[2019-05-09 12:17] VITALS: BP 143/64
== END 2019-05-09 12:30 | disposition home or self-care (01) ==
LOC: ER 10:32
DX: S61.452A Open bite of left hand, initial encounter (principal); W54.0XXA Bitten by dog, initial encounter; Y93.01 Activity, walking, marching and hiking; Y92.410 Unspecified street and highway as the place of occurrence of the external cause; Z23 Encounter for immunization; I10 Essential (primary) hypertension; F17.200 Nicotine dependence, unspecified, uncomplicated; Z21 Asymptomatic human immunodeficiency virus [HIV] infection status; Z88.8 Allergy status to other drugs, medicaments and biological substances
CPT/HCPCS: 90471; 90715; 99283

== ENCOUNTER 2020-03-23 14:38 | Emergency (ER) | payer MEDICARE, MEDICAID ==
--- NOTE | 2020-03-23 16:33 | ER Document Report ---
ED Medical Screen (RME) - General Stated Complaint: ABSCESS Time Seen by Provider: 03/23/20 16:27 Primary Care Provider: ABAD ROMEO MD [Primary Care Provider] - Follow up as needed Notes: HPI: 49-year-old HIV-positive female who is not on medications for her HIV presenting for evaluation of an abscess to the right gluteal region over the last 4 to 5 days. States she was due to have surgery yesterday but could not because of the infection. Reports pain with sitting. Denies rectal pain. 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 It measures approximately 7 cm x 5 cm diameter I have greeted and performed a rapid initial assessment of this patient. A comprehensive ED assessment and evaluation of the patient, analysis of test results and completion of medical decision making process will be conducted by an additional ED providers. TRAVEL OUTSIDE OF THE [place] IN LAST 30 DAYS: No - Related Data Allergies/Adverse Reactions: ibuprofen [From Motrin] Allergy (Verified 03/23/20 16:28) Sulfa (Sulfonamide Antibiotics) Allergy (Verified 03/23/20 16:28) acetaminophen [From Tylenol] Adverse Reaction (Verified 03/23/20 16:28) Past Medical History - Social History Family history: Reviewed & Not Pertinent - Past Medical History Cardiac Medical History: Reports: Hx Hypertension Pulmonary Medical History: Reports: Hx Pneumonia Renal/ Medical History: Denies: Hx Peritoneal Dialysis Psychiatric Medical History: Reports: Hx Bipolar Disorder, Hx Depression - PTSD, manic depression Infectious Medical History: Reports: Hx HIV Past Surgical History: Reports: Hx Kidney (Renal Surgery) - kidney stones Physical Exam - Vital signs Vitals: Temp Pulse Resp BP Pulse Ox 97.9 F 83 18 127/91 H 100 03/23/20 14:46 03/23/20 14:46 03/23/20 14:46 03/23/20 14:46 03/23/20 14:46 Course - Vital Signs Vital signs: Temp Pulse Resp BP Pulse Ox 97.9 F 83 18 127/91 H 100 03/23/20 14:46 03/23/20 14:46 03/23/20 14:46 03/23/20 14:46 03/23/20 14:46 Doctor's Discharge - Discharge Referrals: ABAD ROMEO MD [Primary Care Provider] - Follow up as needed
[2020-03-23] MEDS ORDERED: LIDOCAINE 1% INJ-PF (10 MG/ML) 30 ML SDV INJ ONE (17:54)
[2020-03-23] MEDS ORDERED: OXYCODONE HCL IR 5 MG TABLET PO ONE (18:42)
--- NOTE | 2020-03-23 18:59 | ER Document Report ---
ED Skin Rash/Insect Bite/Abscs - General TRAVEL OUTSIDE OF THE [place] IN LAST 30 DAYS: No - General Chief Complaint: Abscess Stated Complaint: ABSCESS Time Seen by Provider: 03/23/20 16:27 Primary Care Provider: ABAD ROMEO MD [COMMUNITY BASED STAFF] - 03/25/20 Notes: Patient is a 49-year-old female who presents emergency department with a chief complaint of buttock pain. Patient states that she has history of abscesses in the past. Patient has been treated with doxycycline, which she states helps her abscesses. Patient also has a history of HIV, but is not currently on her medication. Patient denies any history of diabetes. Denies any rectal pain. Denies any anal pain. (YAQUELINAPRIL M) - Related Data Allergies/Adverse Reactions: ibuprofen [From Motrin] Allergy (Verified 03/23/20 16:28) Sulfa (Sulfonamide Antibiotics) Allergy (Verified 03/23/20 16:28) acetaminophen [From Tylenol] Adverse Reaction (Verified 03/23/20 16:28) Past Medical History - Social History Smoking Status: Current Every Day Smoker Drug Abuse: Marijuana, Prescription drugs Family History: Reviewed & Not Pertinent Patient has homicidal ideation: No - Past Medical History Cardiac Medical History: Reports: Hx Hypertension Pulmonary Medical History: Reports: Hx Pneumonia Renal/ Medical History: Denies: Hx Peritoneal Dialysis Psychiatric Medical History: Reports: Hx Bipolar Disorder, Hx Depression - PTSD, manic depression Infectious Medical History: Reports: Hx HIV Past Surgical History: Reports: Hx Kidney (Renal Surgery) - kidney stones Review of Systems - Review of Systems Notes: REVIEW OF SYSTEMS: CONSTITUTIONAL : Denies recent illness. Denies recent unintentional weight loss. Denies fever, chills, or sweats. EENT: Denies eye, ear, throat, or mouth pain, discharge, or symptoms. Denies nasal or sinus congestion. CARDIOVASCULAR: Denies chest pain. RESPIRATORY: Denies shortness of breath, cough, congestion, difficulty breathing, or wheezing. GASTROINTESTINAL: Denies nausea, vomiting, and diarrhea. Denies abdominal pain. Denies constipation. GENITOURINARY: Denies difficulty urinating, burning, blood in urine, urgency or frequency. MUSCULOSKELETAL: Denies neck and back pain. Denies joint pain or swelling. SKIN: See HPI. HEMATOLOGIC : Denies easy bruising or bleeding. LYMPHATIC: Denies swollen, painful, enlarged glands. NEUROLOGICAL: Denies no numbness or tingling denies weakness. Denies headache. Denies altered mental status. Denies alteration in speech. PSYCHIATRIC: Denies stress, anxiety, alteration in sleep patterns, or depression. All other systems reviewed and negative. (APRIL JAMISON) Physical Exam - Vital signs Vitals: Temp Pulse Resp BP Pulse Ox 97.9 F 83 18 127/91 H 100 03/23/20 14:46 03/23/20 14:46 03/23/20 14:46 03/23/20 14:46 03/23/20 14:46 - Notes Notes: PHYSICAL EXAMINATION: GENERAL: Appears well, healthy, well-nourished, no acute distress. HEAD: Normocephalic, atraumatic. EYES: PERRL, conjunctiva normal, all extraocular movements intact, sclera nonicteric ENT: Moist mucous membranes. NECK: Supple, no noticeable swelling, redness, rash. Normal range of motion. LUNGS: Equal breath sounds bilaterally and clear to auscultation. No wheezes rales or rhonchi. CARDIOVASCULAR: S1-S2, regular rate, regular rhythm. Radial pulses 2+, normal. ABDOMEN: Normoactive bowel sounds. Soft, nontender, no guarding, no rebound tenderness, and no masses palpated. EXTREMITIES: Normal strength and range of motion, no pitting or edema. No cyanosis. NEUROLOGICAL: Moves all extremities upon command. Strength 5/5 in all extremities. PSYCH: Normal mood, normal affect. SKIN: Warm, dry. Abscess noted to right buttock. Lymphadenopathy noted to right groin. (APRIL JAMISON) Course - Re-evaluation Re-evalutation: 03/23/20 19:15 Abscess was drained here in the emergency department. see procedure note. Whitney, PCT at bedside. Patient has lymphadenopathy to her right groin, due to the abscess she has on her right buttock.. I told the patient that I got a lot of the purulent drainage out, but there is a possibility that this more purulent drainage was in there. The patient's pain was constant although she was given lidocaine. Every time I try to express more purulent drainage, she would be crying in pain. I packed the abscess. Patient will be started on doxycycline, she states this helps with her abscesses. She will follow-up with her primary care provider on Wednesday. She is in agreement with this plan. Follow-up precautions were given. Verbal discharge instructions were given to the patient. They verbalized understanding. They are stable for discharge. (YAQUELINAPRIL M) - Vital Signs Vital signs: Temp Pulse Resp BP Pulse Ox 97.9 F 88 18 108/71 100 03/23/20 14:46 03/23/20 19:23 03/23/20 19:23 03/23/20 19:23 03/23/20 19:23 Procedures - Incision and Drainage Right Buttock Type: Simple Anesthetic type: 1% Lidocaine mL's of anesthetic: 30 Blade size: 11 I&D procedure: Betadine prep applied, Shurclens applied, Iodoform packing placed, Sterile dressing applied Incision Method: Incision made by scalpel Amount/type of drainage: 30 mL/purulent and blood Adult Front & Back picture: 1 - Abscess Discharge - Discharge Clinical Impression: Abscess Condition: Stable Disposition: HOME, SELF-CARE Instructions: Post Incision and Drainage Additional Instructions: You were seen today in the emergency department for an abscess on your right buttock area. It was drained here in the emergency department. Follow-up with your primary care provider on Wednesday to have your abscess rechecked. Keep the packing in. You can change the outside dressing twice a day. Keep in mind, not all the drainage was expelled from the area. If you develop a fever, body ache s, or chills, return to the emergency department. Prescriptions: Tramadol HCl [Ultram 50 mg Tablet] 50 mg PO ASDIR PRN #6 tablet PRN Reason: Doxycycline Hyclate [Vibramycin 100 mg Tablet] 100 mg PO BID 7 Days #14 tablet Forms: Return to Work Referrals: ABAD ROMEO MD [COMMUNITY BASED STAFF] - 03/25/20
[2020-03-23 19:24] VITALS: BP 108/71
== END 2020-03-23 19:23 | disposition home or self-care (01) ==
LOC: ER 14:38
DX: L02.31 Cutaneous abscess of buttock (principal); B20 Human immunodeficiency virus [HIV] disease; F17.200 Nicotine dependence, unspecified, uncomplicated; I10 Essential (primary) hypertension
CPT/HCPCS: 99283; 87070; 87205; 87075; 87077; 10060; J3490; A9270